=== PATIENT | male | born 1955 | race Caucasian/White ===

== ENCOUNTER 2018-03-06 08:59 | Outpatient (CLI) | payer OTHER ==
[2018-03-06] MEDS ORDERED: BARIUM SULFATE 135 ML SUSP.RECON (E-Z-HD) PO ONE (09:21)
== END 2018-03-06 19:26 | disposition home or self-care (01) ==
LOC: SRD 08:59
PROVIDERS: ATTEND Otolaryngology
DX: R13.10 Dysphagia, unspecified (principal); R13.0 Aphagia
CPT/HCPCS: 74220-TC

== ENCOUNTER 2021-12-13 10:52 | Emergency (ER) | payer OTHER, MEDICAID ==
[2021-12-13 10:56] VITALS: BP_SYST 158
--- NOTE | 2021-12-13 11:01 | NUR ---
PT TRIAGED AND IN AMBULANCE RIG UNTIL AVAILABLE COVID + ROOM WITH EMT'S.
--- NOTE | 2021-12-13 11:25 | NUR ---
Assumed care of pt BIBA c/o cold and flu symptoms. Patient has a hx of depression and bipolar disorder. VS WNL. Patient appears in no acute distress. Will continue to monitor and care for patient as ordered by provider.
--- NOTE | 2021-12-13 11:27 | NUR ---
ER Dr. Nobles at bedside examining patient.
[2021-12-13 13:09] LABS: BASOPHILS % (AUTO) 0.4 % (0.0-2.0); EOSINOPHILS % (AUTO) 0.4 % (0.0-4.0); HEMATOCRIT 41.4 % (36-54); LYMPHOCYTES % (AUTO) 30.2 % (20.5-51.5); MEAN CORPUSCULAR HEMOGLOBIN 31 pg (27-31); MEAN CORPUSCULAR HGB CONC 34 % (32-36); MEAN CORPUSCULAR VOLUME 92 fL (79.0-98.0); MONOCYTES # (AUTO) 1.1 K/uL (0.0-1.0); MONOCYTES % (AUTO) 17.2 % (1.7-9.3); NEUTROPHILS # (AUTO) 3.5 K/uL (1.8-7.7); NEUTROPHILS % (AUTO) 51.8 % (40.0-70.0); PLATELET COUNT (AUTO) 74 K/uL (130-430); RED BLOOD CELL COUNT(AUTO) 4.53 MIL/uL (4.2-6.2); RED CELL DISTRIBUTION WIDTH 14.7 % (9.0-15.0); WHITE BLOOD COUNT (AUTO) 6.7 K/uL (4.8-10.8)
[2021-12-13 13:24] LABS: CALCIUM 8.9 mg/dL (8.4-11.0); CREATININE 1.37 mg/dL (0.55-1.30); POTASSIUM 4.1 mmol/L (3.5-5.1)
[2021-12-13 13:29] LABS: ALBUMIN 3.1 g/dL (3.4-4.8); TOTAL BILIRUBIN 0.5 mg/dL (0.0-1.0)
--- NOTE | 2021-12-13 16:38 | NUR ---
Placed in room 8 . Placed on monitor tech, blood pressure machine and pulse oximeter. To gown for exam. Side rails up.
[2021-12-13 16:43] VITALS: BP_SYST 165
[2021-12-13 17:01] LABS: BILIRUBIN,URINE NEGATIVE (NEGATIVE); CLARITY/URINE CLEAR (CLEAR); COLOR,URINE YELLOW (YELLOW); GLUCOSE,URINE NEGATIVE (NEGATIVE); KETONES,URINE NEGATIVE (NEGATIVE); LEUKOCYTE ESTERASE ,URINE NEGATIVE (NEGATIVE); NITRITE, URINE NEGATIVE (NEGATIVE); PROTEIN URINE NEGATIVE (NEGATIVE); UROBILINOGEN,URINE 0.2 (0.2-1.0)
[2021-12-13 17:17] LABS: BLOOD, URINE TRACE (NEGATIVE)
[2021-12-13 17:20] LABS: BACTERIA,URINE RARE /HPF (None Seen); MUCUS,URINE None Seen /LPF (None Seen); RBC,URINE 0-3 /HPF (0-3); WBC,URINE 0-3 /HPF (0-3)
--- NOTE | 2021-12-13 18:27 | NUR ---
spoke to adilson at [facility] who stated she will send someone to pick out hand pt since he discharging.
--- NOTE | 2021-12-13 19:30 | NUR ---
Patient given written and verbal discharge instructions and verbalizes understanding. ER MD discussed with patient the results and treatment provided. Patient in stable condition. ID arm band removed. Rx of given. Patient educated on pain management and to follow up with PMD. Pain Scale 0/10. Opportunity for questions provided and answered. Medication side effect fact sheet provided.
== END 2021-12-13 19:44 | disposition home or self-care (01) ==
LOC: SED 10:52
DX: U07.1 COVID-19 (principal)
CPT/HCPCS: 36415; 71045; 76376; 80053; 81000; 83605; 85025; 87040; 99285